=== PATIENT | male | born 1960 | race Caucasian/White ===

== ENCOUNTER 2018-08-19 07:22 | Inpatient (IN) ==
--- NOTE | 2018-07-21 13:08 | Anesthesiology Consultation ---
Date of Service July 21, 2018 Assessment & Plan (1) Encounter for pre-operative examination: PCP CLEARANCE (MARIO) 07/30 = "the patient is medically stable for the planned procedure. Lab and EKG were reviewed." Chart Review Chart Review: Acceptable Risk for Surgery and Patient seen in Pre Admission Testing Teaching & Discussion Instructed NPO after midnight before surgery, except medications with 15 cc of water. Medication instructions provided according to the PAT guidelines. History Surgery Operation Date: 08/19/18 09:45 Proposed Procedures p Left Total Shoulder Arthroplasty - Ravi Martinez MD Height/Weight Height: 6 ft Weight: 105.1 kg Allergies Allergy/AdvReac Type Severity Reaction Status Date / Time iodine Allergy Unknown WELTS Verified 07/16/18 15:57 meloxicam Allergy Unknown WAS TOLD Verified 07/16/18 16:25 NOT TO TAKE Medications Home Medications Medication Instructions Recorded Confirmed Last Taken Allergy Shots 1 UD 07/16/18 07/16/18 acetaminophen [Tylenol Extra 1,000 mg PO UD PRN 07/16/18 07/16/18 Unknown Strength] adalimumab [Humira] 40 mg SUBCUT 07/16/18 07/12/18 ascorbic acid (vitamin C) [Vitamin 240 mg PO QAM 07/16/18 07/16/18 Unknown C] atorvastatin 10 mg PO HS 07/16/18 07/16/18 07/15/18 cholecalciferol (vitamin D3) 6,000 unit PO QAM 07/16/18 07/16/18 Unknown [Vitamin D3] cyanocobalamin (vitamin B-12) 1,000 mcg PO QAM 07/16/18 07/16/18 Unknown [Vitamin B-12] diltiazem HCl 240 mg PO HS 07/16/18 07/16/18 07/15/18 fenofibrate 134 mg PO HS 07/16/18 07/16/18 07/15/18 gabapentin 900 mg PO TID 07/16/18 07/16/18 07/16/18 garlic 2 mg PO DAILY 07/16/18 07/16/18 Unknown [id number] 1 tab PO DAILY 07/16/18 07/16/18 Unknown [Multivitamin 50 Plus] omeprazole 40 mg PO QAM 07/16/18 07/16/18 07/16/18 sertraline 100 mg PO HS 07/16/18 07/16/18 07/15/18 Past Medical History Medical History Acid reflux Ankylosing spondylitis High blood pressure High cholesterol History of kidney stones X1 Hypoglycemia Pt reports he has sudden drops in blood glucose. Reports that with prior surgeries he has been okay with being NPO for 8 hours. Osteoarthritis Seasonal allergies Exercise / Class Metabolic Activity II 4-5 Yardwork/Stairs/Walk up hill (Denies CP or SOB with stairs, does daily) Past Family History Family History Mother Family history of pancreatic cancer Other Family history of prostate cancer in father Past Surgical History Surgical History History of appendectomy History of arthroscopy of left shoulder History of colonoscopy History of hemorrhoidectomy Past Anesthesia History No Hx of Anesthesia Complications and No Family Hx of Anesthesia Complications History of PONV No Hx of PONV and No Hx of Motion Sickness Social History Smoking Status: Former smoker Do You Dip or Chew Tobacco: Yes (1 CAN EVERY 2 DAYS - ADVISED NPO) Smoking End Date: SMOKED OFF AND ON A YOUNG ADULT - NONE CURRENTLY Hx Alcohol Use: No Hx Substance Use: No substance use type: does not use Review of Systems Pt denies any recent chest pain, shortness of breath, palpitations, cough, fever or URI. +seasonal allergies/rhinitis Physical Exam Vital Signs BP: 137/88 (pt reports this is high for him and he is nervous) P: 74bpm SPO2: 98% RA T: 98.4 F R: 16 ENMT Mouth: + dentures (partial lower), + dental restorations (several caps) and + chipped teeth (upper L bicuspid); no loose teeth Thyromental Distance: > or= 3.5 Finger Breadths (4) Mallampati Class: I Neck normal visual inspection; neck extension not limited Respiratory normal respiratory effort Auscultation: lungs clear to auscultation bilaterally Cardiovascular Rate/Rhythm: regular rate and regular rhythm Heart Sounds: no murmur Vessels: no carotid bruit Testing Laboratory Results 07/21/18 13:42 07/21/18 13:42 07/21/18 07/21/18 07/21/18 13:42 13:42 13:42 PT 10.9 INR 1.1 APTT 25.9 Hemoglobin A1c 5.7 H Urine Color Urine Appearance Urine pH Ur Specific [place] Urine Protein Urine Glucose (UA) Urine Ketones Urine Nitrite Ur Leukocyte Esterase Blood Type B Positive Antibody Screen NEGATIVE 07/21/18 13:42 PT INR APTT Hemoglobin A1c Urine Color Dark Yellow Urine Appearance Clear Urine pH 5.0 Ur Specific [place] 1.030 Urine Protein Negative Urine Glucose (UA) Negative Urine Ketones Trace H Urine Nitrite Negative Ur Leukocyte Esterase Negative Blood Type Antibody Screen Electrocardiogram Date: 07/21/18 Findings: + NSR @ (64) Chest X-Ray Date: 07/21/18 Findings: + NAD
--- NOTE | 2018-07-21 13:16 | PAT Medication Instructions ---
Medication Instructions Date of Service July 21, 2018 Home Medications Allergy Shots 1 UD acetaminophen [Tylenol Extra Strength] 1,000 mg PO UD PRN adalimumab [Humira] 40 mg SUBCUT ascorbic acid (vitamin C) 240 mg PO QAM atorvastatin 10 mg PO HS cholecalciferol (vitamin D3) 6,000 unit PO QAM cyanocobalamin (vitamin B-12)1,000 mcg PO QAM diltiazem HCl 240 mg PO HS fenofibrate 134 mg PO HS gabapentin 900 mg PO TID garlic 2 mg PO DAILY [Multivitamin 50 Plus] 1 tab PO DAILY omeprazole 40 mg PO QAM sertraline 100 mg PO HS Continue as directed Allergy Shots 1 UD ASK your prescriber and surgeon adalimumab [Humira] 40 mg SUBCUT STOP taking 2 weeks before surgery garlic 2 mg PO DAILY STOP taking 24 hours before surgery fenofibrate 134 mg PO HS DO NOT take the morning of surgery ascorbic acid (vitamin C) 240 mg PO QAM cholecalciferol (vitamin D3) 6,000 unit PO QAM cyanocobalamin (vitamin B-12)1,000 mcg PO QAM [Multivitamin 50 Plus] 1 tab PO DAILY Take morning of surgery With a small sip of water, OTHERWISE NOTHING TO EAT OR DRINK AFTER MIDNIGHT: acetaminophen [Tylenol Extra Strength] 1,000 mg PO UD PRN (if needed, may be taken up to four hours before surgery) gabapentin 900 mg PO TID omeprazole 40 mg PO QAM Take evening before surgery acetaminophen [Tylenol Extra Strength] 1,000 mg PO UD PRN (if needed) atorvastatin 10 mg PO HS diltiazem HCl 240 mg PO HS gabapentin 900 mg PO TID sertraline 100 mg PO HS Other Notes If you have any questions please call us at [phone] or [phone] or [phone] or [phone]
--- NOTE | 2018-07-21 13:57 | XRay Report ---
XR chest Pre-admission PA/Lat CLINICAL HISTORY: pat COMPARISON STUDY: No previous studies for comparison. FINDINGS: The bones soft tissues and hemidiaphragms are normal. The cardiomediastinal silhouette is n ormal. The lungs are clear. The pulmonary vasculature is normal. IMPRESSION: Negative chest. The above report was generated using voice recognition software. It may contain grammatical, syntax or spelling errors. Electronically signed by: Mirza Green M.D. 07/21/2018 1:55 PM
[2018-07-21 14:29] LABS: Appearance Urine Clear (Clear); Bilirubin Urine Negative (Negative); Blood Urine Negative (Negative); Color Urine Dark Yellow; Glucose Urine UA Negative (Negative); Ketones Urine Trace (Negative); Leukocyte Esterase Urine Negative (Negative); Nitrite Urine Negative (Negative); Protein Urine Negative (Negative); Urobilinogen Urine Negative (Negative)
[2018-07-21 14:45] LABS: Albumin Level 4.1 gm/dl (3.4-5.0); BUN Creatinine Ratio 13.8 (10-20); Calcium 9.7 mg/dl (8.5-10.1); Creatinine Clr Calc Pharmacy 86.7 ml/min; Est GFR (African American) 80.3; Est GFR (Non-African American) 69.3; Potassium 3.8 mmol/L (3.5-5.1)
[2018-07-21 14:46] LABS: INR 1.1 (0.9-1.1); Partial Thromboplastin Time 25.9 Seconds (21.0-31.0); Prothrombin Time 10.9 Seconds (9.0-12.0)
[2018-07-21 14:56] LABS: Estimated Average Glucose 117 mg/dl; Hemoglobin A1C 5.7 % (4.5-5.6)
[2018-07-21 15:20] LABS: Basophils # (auto) 0.01 K/uL (0-0.2); Basophils % (auto) 0.1 %; Eosinophils # (auto) 0.08 K/uL (0-0.5); Eosinophils % (auto) 1.1 %; Hematocrit (blood only) 45.4 % (42-52); Hemoglobin 15.9 g/dL (14.0-18.0); Immature Granulocytes # (auto) 0.03 K/uL (0.00-0.02); Immature Granulocytes % (auto) 0.4 %; Lymphocytes % (auto) 29.1 %; Mean Corpuscular Volume 94.4 fL (80-100); Mean Platelet Volume 10.5 fL (7.4-10.4); Monocytes # (auto) 0.79 K/uL (0.11-0.59); Monocytes % (auto) 10.4 %; Neutrophils # (auto) 4.46 K/uL (1.4-6.5); Neutrophils % (auto) 58.9 %; Platelet Count 217 K/uL (130-400); RDW Coefficient of Variation 13.3 % (11.5-14.5); RDW Standard Deviation 45.9 fL (36.4-46.3); Red Blood Count 4.81 M/uL (4.7-6.1); White Blood Count 7.57 K/uL (4.8-10.8)
--- NOTE | 2018-08-18 13:38 | History and Physical Report ---
DATE OF ADMISSION: 08/19/2018 CHIEF COMPLAINT: Chronic left shoulder pain. HISTORY OF PRESENT ILLNESS: This is a 58-year-old male patient of Dr. Martinez'stanton complaining of chronic left shoulder pain, longstanding, now progressively getting worse. The patient has been diagnosed with end-stage osteoarthritis per clinical and radiographic exams. The patient has failed conservative treatment and has elected to proceed with a left total shoulder arthroplasty. PAST MEDICAL HISTORY: Hypertension, hypercholesterolemia, sleep apnea, anxiety, osteoarthritis, TMJ, spine problems, neck problems, upper back problems, lower back problems, acid reflux, dental issues, kidney stones, BPH. SOCIAL HISTORY: Nonsmoker, nondrinker. PAST SURGICAL HISTORY: Exploratory laparoscopy, hemorrhoid and left shoulder scope. FAMILY HISTORY: Noncontributory. REVIEW OF SYSTEMS: Chronic left shoulder pain. Otherwise, denies any shortness of breath, chest pain, nausea, vomiting or any other joint complaints. MEDICATIONS: Fenofibrate 1 capsule daily, atorvastatin 10 mg daily, gabapentin 300 mg 3 times daily, diltiazem 240 mg daily, omeprazole 40 mg daily, sertraline 100 mg daily, Humira 10 mg/0.2 mL subQ. ALLERGIES: LODINE. PHYSICAL EXAMINATION: GENERAL: Well-developed, well-nourished 58-year-old male in no acute distress. He is alert and oriented x3 and pleasant. HEENT: Normocephalic, atraumatic. Extraocular motions are intact. Pupils are equal and reactive to light. HEART: Regular rate and rhythm, no murmurs. LUNGS: Clear. ABDOMEN: Soft, nontender, bowel sounds present. EXTREMITIES: Left shoulder has 4+/5 strength with pain and crepitation. He has limited range of motion to about 100 degrees with crepitation. NEUROLOGIC: Neurovascularly, he is intact in his left upper extremity. DIAGNOSES: Left shoulder end-stage osteoarthritis, hypertension, hypercholesterolemia, sleep apnea, anxiety, osteoarthritis, TMJ, spine problems, neck problems, upper back problems, sciatica, acid reflux, kidney stones, benign prostatic hypertrophy and dental issues. PLAN: The patient was advised of his diagnosis. Indications, risks, benefits, postop course have all been reviewed. The patient wished to proceed with a left total shoulder arthroplasty. Necessary consent forms, preoperative testing and clearances will be obtained.
[~2018-08-19 07:22] MED LIST: ACETAMINOPHEN 500 MG TAB PO SCH; CEFAZOLIN 2000MG 2,000 MG/15 ML SYR IV SCH; CeleBREX 200 MG CAP PO SCH; FAMOTIDINE 20 MG TAB PO SCH; GABAPENTIN 300 MG x 2 PO SCH; LR 15ML/HR IV SCH; METOCLOPRAMIDE HCL 10 MG TABLET PO SCH; ROPIVACAINE 0.5% 5 MG/ML 30 ML VIAL ONE; VANCOMYCIN HCL 1,500 MG in SODIUM CHLORIDE 0.9% 500 ML IV SCH; dexAMETHasone 4 MG TAB PO SCH
[2018-08-19] MEDS ORDERED: PROPOFOL IV EMULSION 10 MG/ML 20 ML VIAL IV ONE (08:04)
[2018-08-19] MEDS ORDERED: LIDOCAINE HCL 2% 2 ML VIAL/AMP(20MG/ML) INFIL ONE (08:04)
[2018-08-19] MEDS ORDERED: DEXAMETHASONE SOD INJ 4 MG/ML VIAL ONE (08:04)
[2018-08-19] MEDS ORDERED: ONDANSETRON INJ 2 MG/ML 2 ML VIAL ONE (08:04)
[2018-08-19] MEDS ORDERED: fentaNYL citrate 100 MCG/2 ML VIAL ONE (08:05)
[2018-08-19] MEDS ORDERED: MIDAZOLAM HCL 1 MG/ML 2ML VIAL ONE ×2 (08:05→08:34)
[2018-08-19] MEDS ORDERED: ATROPINE SULFATE 0.1 MG/ML 10ML SYR IV PRN (09:40)
[2018-08-19] MEDS ORDERED: ePHEDrine sulfate 50 MG/ML AMP IV PRN (09:40)
[2018-08-19] MEDS ORDERED: HYDROmorphone INJ 1 MG/ML SYRINGE IV PRN (09:40)
--- NOTE | 2018-08-19 09:45 | History & Physical Bridge Note ---
Date of Service August 19, 2018 History & Physical Bridge Note I have examined the patient, reviewed the History & Physical and in the interval since the performance of the History & Physical I have noted the following changes of clinical significance: no changes noted
[2018-08-19] MEDS ORDERED: BACITRACIN INJ 50,000 UNIT VIAL ONE (09:47)
[2018-08-19] MEDS ORDERED: EPINEPHrine INJ 1 MG/ML AMP ONE (09:47)
[2018-08-19] MEDS ORDERED: ROCURONIUM BROMIDE 10 MG/ML 5 ML VIAL ONE ×2 (11:38→11:55)
[2018-08-19] MEDS ORDERED: ePHEDrine sulfate 50 MG/ML SYR ONE (12:10)
[2018-08-19] MEDS ORDERED: ePHEDrine sulfate 50 MG/ML AMP ONE (12:10)
[2018-08-19] MEDS ORDERED: PHENYLEPHRINE 100MCG/ML 5ML SYR ONE (12:10)
[2018-08-19] MEDS ORDERED: THROMBIN FOR SOLN 20000 UNIT KIT ONE (12:33)
[2018-08-19] MEDS ORDERED: GLYCOPYRROLATE 0.2 MG/ML VIAL ONE (12:53)
[2018-08-19] MEDS ORDERED: NEOSTIGMINE METHYLSULFATE 5 MG/5 ML SYR ONE (12:53)
--- NOTE | 2018-08-19 13:20 | Post Operative Brief Note ---
Immediate Post Op Note v1 Date of Surgery August 19, 2018 Pre & Post Diagnosis Operation Date: 08/19/18 09:45 Pre-Op Diagnosis: LEFT SHOULDER OSTEOARTHRITIS biceps tenosynovitis Post-Op Diagnosis: LEFT SHOULDER OSTEOARTHRITIS biceps tenosynovitis biceps tendinopathy large degenerative cysts posterior glenoid with erosion Procedure Operation Date: 08/19/18 09:45 Actual Procedures p Left Total Shoulder Arthroplasty, Biceps Tenodesis(Left) - Ravi Martinez MD Surgeon Ravi Martinez MD Machine Heddle Cleaner Mirza LECHUGA Estimated Blood Loss 200 Findings Consistent with Post-Op Diagnosis Specimens Humeral head Drains Hemovac Drain Anesthesia Type General Regional Complications none Disposition Accompanied Patient To Recovery: No Disposition: Recovery Room Overlapping Procedure I was present for: the critical portions of procedure.
--- NOTE | 2018-08-19 14:11 | Anesthesiology Progress Note ---
Date of Service August 19, 2018 Anesthesia Post Procedure Vital Signs Vital Signs: Temp Pulse Pulse Resp BP Pulse Ox 08/19/18 14:05 92 H 21 121/64 91 08/19/18 13:55 87 18 101/64 95 08/19/18 13:45 85 15 105/67 95 08/19/18 13:35 36.2 C L 88 16 104/67 93 08/19/18 09:55 36.6 C 62 20 125/87 95 Pain Intensity Left Shoulder: Pain Intensity: 0 Transfer of Care Handoff Completed per policy Notes Mental Status: alert / awake / arousable Patient Amnestic to Procedure: Yes Nausea / Vomiting: adequately controlled Pain: adequately controlled Airway Patency, RR, SpO2: stable & adequate BP & HR: stable & adequate Hydration State: stable & adequate Anesthetic Complications: no major complications apparent and Pt Satisfied with anesthetic care
--- NOTE | 2018-08-19 14:11 | XRay Report ---
XR shoulder LT min 2V routine CLINICAL HISTORY: Post shoulder surgery COMPARISON: None. DISCUSSION: There are postsurgical changes of a total left shoulder arthroplasty. There is no disloca tion. There are overlying skin smita and surgical drains. There is aortic the soft tissues consiste nt with recent surgery. Left lower lung zone opacities while nonspecific are likely atelectatic. IMPRESSION: Postsurgical changes of a total left shoulder arthroplasty. No dislocation identified. Electronically signed by: Munir Tay M.D. 08/19/2018 2:09 PM
[2018-08-19] MEDS ORDERED: BISACODYL 10 MG SUPP PR PRN (15:16)
[2018-08-19] MEDS ORDERED: HYDROmorphone INJ 0.5 MG/0.5 ML SYR IV PRN (15:16)
[2018-08-19] MEDS ORDERED: NALOXONE HCL 0.4 MG/1 ML VIAL/CARP IV PRN (15:16)
[2018-08-19] MEDS ORDERED: SODIUM CHLORIDE 0.9% 1000ML 1,000 ML IV SCH (15:16)
[2018-08-19] MEDS ORDERED: MAGNESIUM HYDROXIDE SUSP 30 ML UDC PO PRN (15:16)
[2018-08-19] MEDS ORDERED: ONDANSETRON INJ 2 MG/ML 2 ML VIAL IV PRN (15:16)
--- NOTE | 2018-08-19 16:10 | Hospitalist Consultation ---
Date of Consultation August 19, 2018 Assessment & Plan (1) Osteoarthritis, shoulder: - S/p left total shoulder arthroplasty today. - Pain control per primary team. - DVT ppx: Aspirin 81 mg BID. - PT/OT evaluation. - Monitor CBC qAM to evaluate for acute blood loss anemia. (2) Ankylosing spondylitis: - Receives Humira injection [id number] along with Gabapentin 900 mg TID. (3) HTN (hypertension): - Continue Diltiazem as prescribed. (4) HLD (hyperlipidemia): - Continue statin as prescribed. (5) Vitamin D deficiency: - Continue Vit D replacement. (6) GERD (gastroesophageal reflux disease): - PPI qAM. (7) Depression: - Continue Sertraline as prescribed. (8) DVT prophylaxis: - SCDs; ASA 81 mg BID. Dispo: Will continue to follow, please call with questions. Supervising Physician Co-Signing Physician Notes Attending Attestation & Consult Note: Pt seen/examined, chart reviewed, care plan d/w ALEXANDREA August. I agree w/ the francis components of her documentation. 58yo male who underwent left total shoulder replacement today. During my visit he was tremulous/shaky. BSG was checked and was >150. He denied feeling nervous, denied h/o etoh misuse, denied pain. He was also tachycardic - EKG obtained - my reading sinus tach, no ST changes. Denied cp, dyspnea, abd pain. PMH, PSH, allergies, meds, sochx, famhx, ros - reviewed gen - shaky, tremors noted but a/o x 3 heart - tachy, s1 s2 lungs - CTA b/l abd - soft NT ND BS+ ext - left shoulder in large, bulky dressing neuro - mild tremors If tachycardia persists this will need additional work-up. Ordered nicoderm - consumes fair amount of chewing tobacco daily. Tremors - cause? Follow for now. Catrachito Garcia MD History of Present Illness Reason for Consultation: Medical Management Attending Physician: Ravi Martinez MD History of Present Illness Mr. Abel is a 58 year old male with past medical history of GERD, Ankylosing spondylitis, HTN, HLD, Osteoarthritis, Depression who presented for a planned total left shoulder arthroplasty. He is doing well post op. Complains of a sore throat 2/2 intubation. Denies chest pain, SOB, N/V. Allergies Allergy/AdvReac Type Severity Reaction Status Date / Time iodine Allergy Unknown WELTS Verified 08/19/18 07:58 meloxicam Allergy Unknown WAS TOLD Verified 08/19/18 07:58 NOT TO TAKE Home Medications Home Medications Medication Instructions Recorded Confirmed Type Allergy Shots 1 UD 07/16/18 History Humira 40 mg SUBCUT 07/16/18 History Multivitamin 50 Plus 1 tab PO DAILY 07/16/18 08/19/18 History ascorbic acid (vitamin C) [Vitamin 240 mg PO QAM 07/16/18 08/19/18 History C] atorvastatin 10 mg PO HS 07/16/18 07/16/18 History cholecalciferol (vitamin D3) 6,000 unit PO QAM 07/16/18 08/19/18 History [Vitamin D3] cyanocobalamin (vitamin B-12) 1,000 mcg PO QAM 07/16/18 08/19/18 History [Vitamin B-12] diltiazem HCl 240 mg PO HS 07/16/18 07/16/18 History fenofibrate 134 mg PO HS 07/16/18 07/16/18 History gabapentin 900 mg PO TID 07/16/18 07/16/18 History garlic 2 mg PO DAILY 07/16/18 08/19/18 History omeprazole 40 mg PO QAM 07/16/18 07/16/18 History sertraline 100 mg PO HS 07/16/18 07/16/18 History acetaminophen [Tylenol Extra 1,000 mg PO Q8 30 Days #180 tab 08/20/18 Rx Strength] oxycodone 5 mg PO Q4H PRN #30 tab 08/20/18 Rx Patient History Medical History Acid reflux Ankylosing spondylitis High blood pressure High cholesterol History of kidney stones X1 Hypoglycemia Pt reports he has sudden drops in blood glucose. Reports that with prior surgeries he has been okay with being NPO for 8 hours. 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 Beliefs That Will Affect Care: None marital status: Current Living Situation: Spouse Other Information That Helps Us Care for You: No Feels Safe at Home: Yes Smoking Status: Former smoker Do You Dip or Chew Tobacco: Yes (1 CAN EVERY 2 DAYS - ADVISED NPO) Smoking End Date: SMOKED OFF AND ON A YOUNG ADULT - NONE CURRENTLY Hx Alcohol Use: No Hx Substance Use: No Review of Systems Review of Systems: All systems reviewed & are unremarkable except as noted in HPI & below Physical Exam Physical Exam: General: Resting comfortably in no apparent distress HEENT: NC/AT; PERRLA with EOMI; [place] conjunctiva, MMM. No erythema of posterior pharynx Neck: Supple and nontender Cardiac: RRR w/o murmurs, gallops or rubs Lungs: CTA bilaterally; No rhonchi, wheezing, or rales Abdomen: Bowel normoactive X 4; Nontender to palpation Extremities: Warm. No edema present. Dressing in place over left shoulder. Neuro: No focal weakness Skin: No rash Results & Data Vital Signs (Past 12 Hours) Vital Signs Temp Pulse Pulse Resp BP Pulse Ox 08/19/18 16:00 36.9 C 93 H 16 111/74 94 08/19/18 15:38 36.9 C 87 16 102/70 93 08/19/18 14:45 86 14 119/76 94 08/19/18 14:30 84 16 111/71 91 08/19/18 14:15 36.4 C L 86 14 112/75 93 08/19/18 14:05 92 H 21 121/64 91 08/19/18 13:55 87 18 101/64 95 08/19/18 13:45 85 15 105/67 95 08/19/18 13:35 36.2 C L 88 16 104/67 93 08/19/18 09:55 36.6 C 62 20 125/87 95 Laboratory Results 08/19/18 08/19/18 Range/Units 13:40 12:47 POC Glucose 134 H 129 H (70-99) PG Care Time/CCT Total # of Minutes Spent Total Time Spent with Patient: Total time spent is greater than 50% in coordination of care (as documented) at patient's floor/unit and/or counseling patient:
[2018-08-19] MEDS: CEFAZOLIN 2000MG 2,000 MG/15 ML SYR IV SCH (18:24)
--- NOTE | 2018-08-19 18:57 | Operative Report ---
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 Patient has x-rays and MRI demonstrate he is [id number] in the joint. He has an intact rotator cuff and has had previous arthroscopic subacromial decompression distal clavicle excision surgery. Description of Procedure The patient was taken to the operating room and anesthetized under a general and regional block anesthesia. A towel roll was placed under the medial border of the scapula of the left shoulder. The patient's head was placed on a foam headrest and protective eyewear was placed and the extremities were well padded. The arm was draped free in order to manipulate the shoulder as necessary. The shoulder exam demonstrated [id number] crepitation forward elevation 140 abduction 80 external rotation 50. The shoulder was sterilely prepped and draped in the usual sterile fashion. An anterior deltopectoral approach was performed. A longitudinal incision was made in the interval. The skin was incised sharply and subcutaneous tissues dissected down to the fascia. The cephalic vein was identified and retracted laterally with the deltoid. Any crossing veins were tied off with silk ties and divided. The clavipectoral fascia was divided at the lateral margin of the conjoined tendon and divided up to the level of the coracoacromial ligament which was preserved. The upper 1 cm of the pectoralis was released for inferior exposure. The biceps tendon findings demonstrated marked tenosynovitis with large fluid collections and inflamed tenosynovium. The thickened tenosynovium was resected up into the bicipital groove and the biceps tendon was tenodesed to the pectoralis tendon with [id number] #2 FiberWire sutures in the proximal biceps resected. The rotator cuff tendon findings demonstrated complete intact rotator cuff. The circumflex vessels were identified and tied off with silk ties and divided laterally. The fibers and subscapularis were split longitudinally at the level of the circumflex vessels down to the capsule and then reflected off the inferior capsule using a Kitner elevator. The axillary nerve was identified with a tug test and protected with a blunt Alie retractor. The rotator interval was opened up and extended down to the glenoid.The subscapularis tendon was taken down with a trans-tendinous incision leaving a cuff of tissue for repair on the lesser tuberosity. The incision was carried down to the tendon and the capsule and a #1 Vicryl suture was placed into the free end of the subscapularis tendon. The capsule was subperiosteally dissected off the inferior neck of the humerus exposing the humeral osteophytes which demonstrated large osteophytes laterally inferiorly and posteriorly. The osteophytes were excised with an artist chisel and a rongeur. The capsular release along the inferior neck of the humerus was completed. The humerus was then retracted posterior to the glenoid with a Fukuda retractor. The remainder of the biceps tendon and labrum was resected. The glenoid findings demonstrated there was marked erosion of the posterior third of the glenoid. There were large subchondral cysts of that the actual bone at the surface of the posterior glenoid was free-floating and after removal of this there were deep cysts below this area. Multiple fragments were removed and the remainder of the articular surface cartilage anteriorly was curetted down so we could see the true level of the glenoid. I did an anterior inferior and posterior inferior release with electrocautery on bone and a Ott elevator with the axillary nerve continuing to be protected with the blunt Hohmann retractor inferiorly. When the releases were completed and the humeral head was exposed with some extension and external rotation and in anatomic head cut was made using the oscillating saw. The humeral head findings demonstrated eburnated bone no major bone loss. The humeral head was then retracted posterior to the glenoid with Hohmann retractors and Bankart retractor placed anteriorly. A central drill hole was made into the glenoid. The glenoid was sized for a size 48 component. I chose she is a 48 component because the 52 which was a better fit for the humeral component would have had too much overhang on the deficient posterior glenoid so we had to downsize the glenoid to get better backside coverage due to the bone loss. The Tornier total shoulder arthroplasty system was used and the Affinity Cortiloc glenoid component was chosen. The glenoid was reamed and the central drill widened and the guide for the peg holes was placed in the peg holes were drille d. A good bit of attention was then taken to repairing the multiple cysts which had to be excised with a curette and rongeur removing all the loose fragments of the posterior glenoid so we had a good base for cementing the component. A trial component was placed with a tight fit. I tested the trial component there was no rocking. The trial was removed and the glenoid was irrigated with pulsatile lavage antibiotic solution and the drill holes were dried and packed with epinephrine-soaked tampons for hemostasis. The [place] G cement was vacuum mixed. The final component was cemented into position and held in position with pressure until the cement cured. Attention was taken to the humeral preparation. A centralizing awl was used in the canal followed by broaches up to a size 6B. This had the appropriate fit and fill. A size 52 x 23 millimeter trial aequalis humeral head was then used. It was rotated into appropriate position. A trial reduction was performed and the shoulder was stable. The trial was removed and the humerus and canal were irrigated with antibiotic solution with bacitracin. 3 drill holes were made into the hard bone in the bicipital groove lateral to the lesser tuberosity and 3 #5 FiberWire transosseous sutures were placed for repair of the subscapularis. After further irrigation of the canal and the final components were assembled. The final comp onents were the 6B standard ascend flex stem assembled to the 52 x 23 high offset aequalis humeral head. The implant was then impacted into the humerus with a tight press-fit. The humerus was reduced to the glenoid and stability verified. The subscapularis was repaired with the #5 FiberWire sutures in a Chau-Ryan suture technique and lateral row fixation with [id number] #2 FiberWire in the soft tissue. The rotator interval was closed and maximal external rotation. The pectoralis was then closed with [id number]-[id number] #2 FiberWire suture. Sutures were also passed through the biceps tendon reinforcing the biceps tenodesis. 2 Hemovac drains were placed. The deltopectoral interval was closed with [id number]-[id number] #1 Vicryl sutures. The subcutaneous tissues were closed with interrupted 2-0 Vicryl and the skin was closed with smita and a sterile dressing was applied. The patient tolerated the procedure well. Mirza LECHUGA my physician stylist assistant, assisted in soft tissue retraction instrument management suture management and assisted in the subcutaneous and skin closure and will participate in the postoperative care the patient. I attest to the content of the Intraoperative Record and any orders documented therein. Any exceptions are noted below.
[2018-08-19] MEDS ORDERED: NICOTINE 7 MG/24 HR TDSY TD SCH (20:00)
[2018-08-19] MEDS: ASPIRIN 81 MG ECTAB PO SCH (20:01)
[2018-08-19] MEDS: GABAPENTIN 300 MG CAP PO SCH (20:02)
[2018-08-19] MEDS: DOCUSATE SODIUM 100 MG CAP PO SCH (20:02)
[2018-08-19] MEDS: ACETAMINOPHEN 500 MG TAB PO SCH (20:56)
[2018-08-19] MEDS ORDERED: SENNA 8.6 MG TAB PO SCH (21:00)
[2018-08-19] MEDS ORDERED: dilTIAZem HCL 240 MG CAPCR PO SCH (21:00)
[2018-08-19] MEDS ORDERED: SERTRALINE HCL 100 MG TABLET PO SCH (21:00)
[2018-08-19] MEDS ORDERED: ATORVASTATIN 10 MG TAB PO SCH (21:00)
[2018-08-20] MEDS ORDERED: SODIUM CHLORIDE 0.65% NA SOLN 45 ML (OCEAN) ONE (00:45)
[2018-08-20] MEDS: CEFAZOLIN 2000MG 2,000 MG/15 ML SYR IV SCH (02:58)
[2018-08-20] MEDS: OXYCODONE HCL IR 5 MG TAB (IMMEDIATE RELEASE) PO PRN ×2 (05:07→14:09)
[2018-08-20 05:50] LABS: Hematocrit (blood only) 39.7 % (42-52); Hemoglobin 13.6 g/dL (14.0-18.0); Immature Granulocytes # (auto) 0.02 K/uL (0.00-0.02); Immature Granulocytes % (auto) 0.2 %; Lymphocytes # (auto) 0.69 K/uL (1.2-3.4); Lymphocytes % (auto) 5.5 %; Mean Corpuscular Hgb Conc 34.3 g/dL (32-36); Mean Corpuscular Volume 95.4 fL (80-100); Mean Platelet Volume 10.2 fL (7.4-10.4); Monocytes # (auto) 0.97 K/uL (0.11-0.59); Monocytes % (auto) 7.7 %; Neutrophils # (auto) 10.93 K/uL (1.4-6.5); Neutrophils % (auto) 86.6 %; Platelet Count 220 K/uL (130-400); RDW Coefficient of Variation 13.3 % (11.5-14.5); RDW Standard Deviation 46.5 fL (36.4-46.3); Red Blood Count 4.16 M/uL (4.7-6.1); White Blood Count 12.61 K/uL (4.8-10.8)
[2018-08-20 06:18] LABS: BUN Creatinine Ratio 14.9 (10-20); Calcium 9.1 mg/dl (8.5-10.1); Creatinine Clr Calc Pharmacy 70.5 ml/min; Est GFR (African American) 62.2; Est GFR (Non-African American) 53.7; Magnesium 2.1 mg/dl (1.8-2.4); Potassium 4.2 mmol/L (3.5-5.1)
[2018-08-20] MEDS: ACETAMINOPHEN 500 MG TAB PO SCH ×2 (06:28→13:14)
--- NOTE | 2018-08-20 07:21 | Orthopedic Progress Note ---
Date of Service August 20, 2018 Assessment & Plan (1) Osteoarthritis, shoulder: POD #1 Left TSA, Biceps Tenodesis PT/ OT DVT proph- ASA D/C planning- Home This afternoon if stable. Subjective POD#1, doing well, denies SOB, CP, N/V. Pain controlled well. Would like to go home today. Drain output 160 last shift. Physical Exam Physical Exam: Left shoulder dressings c/d/i, no drainage. Fingers mobile. Sling and drain in tact. N/V + A&Ox3. Results & Data Vital Signs (Past 12 Hours) Vital Signs Temp Pulse Resp BP Pulse Ox 08/20/18 06:53 36.4 C L 88 18 121/71 90 08/20/18 03:05 36.7 C 96 H 20 119/76 93 08/20/18 00:14 36.6 C 102 H 16 142/82 H 91 08/19/18 21:00 105 H 08/19/18 19:49 36.8 C 116 H 16 124/83 93
[2018-08-20] MEDS ORDERED: SODIUM CHLORIDE 0.9% 1000ML 1,000 ML IV SCH (08:15)
[2018-08-20] MEDS ORDERED: PANTOprazole 40 MG TAB PO SCH (09:00)
[2018-08-20] MEDS ORDERED: MULTIVITAMIN TAB PO SCH (09:00)
[2018-08-20] MEDS ORDERED: ASCORBIC ACID 500 MG TAB PO SCH (09:00)
[2018-08-20] MEDS ORDERED: CYANOCOBALAMIN 500 MCG TABLET (VITAMIN B-12) PO SCH (09:00)
[2018-08-20] MEDS ORDERED: CEROVITE ADV FORMULA TAB PO SCH (09:00)
[2018-08-20] MEDS ORDERED: CHOLECALCIFEROL 1,000 UNITS TAB PO SCH (09:00)
[2018-08-20] MEDS: ASPIRIN 81 MG ECTAB PO SCH (09:18)
[2018-08-20] MEDS: GABAPENTIN 300 MG CAP PO SCH ×2 (09:22→13:14)
[2018-08-20] MEDS: DOCUSATE SODIUM 100 MG CAP PO SCH (09:23)
--- NOTE | 2018-08-20 10:32 | Hospitalist Progress Note ---
Date of Service August 20, 2018 Assessment & Plan (1) Osteoarthritis, shoulder: - S/p left total shoulder arthroplasty on 08/19, POD#1. - Pain control per primary team. - DVT ppx: Aspirin 81 mg BID. - PT/OT - discharge to home this afternoon. - Monitor CBC qAM - trending down as expected. (2) Acute kidney injury: - Creatinine increased to 1.42, baseline ~1.1. - May be pre-renal related to dehydration. - Started NS at 100 cc/hr. - Will repeat BMP this evening if pt. is not discharged to home yet. - Does have h/o renal failure related to NSAID use, instructed to avoid use of Aspirin/NSAIDs at home; discussed with orthopedics, pt. will not be discharged home with ASA DVT ppx. (3) Ankylosing spondylitis: - Receives Humira injection [id number] along with Gabapentin 900 mg TID. (4) HTN (hypertension): - Continue Diltiazem as prescribed. (5) HLD (hyperlipidemia): - Continue statin as prescribed. (6) Vitamin D deficiency: - Continue Vit D replacement. (7) GERD (gastroesophageal reflux disease): - PPI qAM. (8) Depression: - Continue Sertraline as prescribed. (9) Tobacco abuse: - Smokeless tobacco -- 1-2 cans per day. - Nicotine patch ordered -- withdrawal may have been contributing to tachycardia over last 24 hours. (10) DVT prophylaxis: - SCDs; ASA 81 mg BID. Dispo: Pt. is medically stable, please call with questions. Supervising Physician Co-Signing Physician Notes Attending Attestation: Chart reviewed, care plan d/w ALEXANDREA August. I agree w/ the francis components of her documentation. POD #1 s/p left total shoulder replacement. Tachycardia resolved - suspect due to pain and/or withdrawal from nicotine vs other. Ms August reports tremors/shakiness have resolved. Other vitals/labs acceptable except for mild acute kidney injury - BMP ordered for tomorrow AM. Catrachito Garcia MD Subjective Pt. is doing well overall. Pain in shoulder is stable. Is passing gas, no BM yet. Denies urinary retention. Will be discharged to home this afternoon. Review of Systems Review of Systems: All systems reviewed & are unremarkable except as noted in HPI & below Constitutional: no fever, no chills, no fatigue and no weakness Respiratory: no cough, no dyspnea and no dyspnea on exertion Cardiovascular: no chest pain, no palpitations and no edema Gastrointestinal: + constipation; no abdominal pain, no nausea and no vomiting Genitourinary: no difficulty urinating Musculoskeletal: no back pain and no joint pain Integumentary: no non-healing lesions Allergy / Immunological: no rash Physical Exam Physical Exam: General: Resting comfortably in no apparent distress HEENT: NC/AT; PERRLA with EOMI; [place] conjunctiva, MMM. No erythema of posterior pharynx Neck: Supple and nontender Cardiac: RRR Lungs: CTA bilaterally Abdomen: Bowel normoactive X 4; Nontender to palpation Extremities: Warm. No edema present. Dressing in place over left shoulder. Neuro: No focal weakness Skin: No rash Results & Data Vital Signs (Past 12 Hours) Vital Signs Temp Pulse Resp BP Pulse Ox 08/20/18 06:53 36.4 C L 88 18 121/71 90 08/20/18 03:05 36.7 C 96 H 20 119/76 93 08/20/18 00:14 36.6 C 102 H 16 142/82 H 91 Laboratory Results 08/20/18 08/20/18 08/20/18 Range/Units 05:30 05:30 05:30 WBC 12.61 H (4.8-10.8) K/uL RBC 4.16 L (4.7-6.1) M/uL Hgb 13.6 L (14.0-18.0) g/dL Hct 39.7 L (42-52) % MCV 95.4 (80-100) fL MCH 32.7 (25-34) pg MCHC 34.3 (32-36) g/dL RDW Std Deviation 46.5 H (36.4-46.3) fL RDW Coeff of Scott 13.3 (11.5-14.5) % Plt Count 220 (130-400) K/uL MPV 10.2 (7.4-10.4) fL Immature Gran % (Auto) 0.2 % Neut % (Auto) 86.6 % Lymph % (Auto) 5.5 % [place] % (Auto) 7.7 % Eos % (Auto) 0.0 % Baso % (Auto) 0.0 % Immature Gran # (Auto) 0.02 (0.00-0.02) K/uL Neut # (Auto) 10.93 H (1.4-6.5) K/uL Lymph # (Auto) 0.69 L (1.2-3.4) K/uL [place] # (Auto) 0.97 H (0.11-0.59) K/uL Eos # (Auto) 0.00 (0-0.5) K/uL Baso # (Auto) 0.00 (0-0.2) K/uL Sodium 139 (136-145) mmol/L Potassium 4.2 (3.5-5.1) mmol/L Chloride 105 (98-107) mmol/L Carbon Dioxide 28 (21-32) mmol/L Anion Gap 6.0 (3-11) BUN 21 H (7-18) mg/dl Creatinine 1.42 H (0.6-1.4) mg/dl Est Cr Clr Drug Dosing 70.5 ml/min Est GFR ( Amer) 62.2 Est GFR (Non-Af Amer) 53.7 BUN/Creatinine Ratio 14.9 (10-20) Glucose 187 H (70-99) mg/dl POC Glucose (70-99) Calcium 9.1 (8.5-10.1) mg/dl Magnesium 2.1 (1.8-2.4) mg/dl Hepatitis C Ab Screen Neg (Neg) 08/19/18 08/19/18 08/19/18 Range/Units 19:45 13:40 12:47 WBC (4.8-10.8) K/uL RBC (4.7-6.1) M/uL Hgb (14.0-18.0) g/dL Hct (42-52) % MCV (80-100) fL MCH (25-34) pg MCHC (32-36) g/dL RDW Std Deviation (36.4-46.3) fL RDW Coeff of Scott (11.5-14.5) % Plt Count (130-400) K/uL MPV (7.4-10.4) fL Immature Gran % (Auto) % Neut % (Auto) % Lymph % (Auto) % [place] % (Auto) % Eos % (Auto) % Baso % (Auto) % Immature Gran # (Auto) (0.00-0.02) K/uL Neut # (Auto) (1.4-6.5) K/uL Lymph # (Auto) (1.2-3.4) K/uL [place] # (Auto) (0.11-0.59) K/uL Eos # (Auto) (0-0.5) K/uL Baso # (Auto) (0-0.2) K/uL Sodium (136-145) mmol/L Potassium (3.5-5.1) mmol/L Chloride (98-107) mmol/L Carbon Dioxide (21-32) mmol/L Anion Gap (3-11) BUN (7-18) mg/dl Creatinine (0.6-1.4) mg/dl Est Cr Clr Drug Dosing ml/min Est GFR ( Amer) Est GFR (Non-Af Amer) BUN/Creatinine Ratio (10-20) Glucose (70-99) mg/dl POC Glucose 192 H 134 H 129 H (70-99) Calcium (8.5-10.1) mg/dl Magnesium (1.8-2.4) mg/dl Hepatitis C Ab Screen (Neg) PG Care Time/CCT Total # of Minutes Spent Total Time Spent with Patient: Total time spent is greater than 50% in coordination of care (as documented) at patient's floor/unit and/or counseling patient:
--- NOTE | 2018-09-02 02:32 | Discharge Summary ---
HISTORY OF PRESENT ILLNESS: This is a 58-year-old male patient of Dr. Martniez'stanton complaining of chronic left shoulder pain, longstanding, now progressively getting worse. The patient has been diagnosed with end-stage osteoarthritis per clinical and radiographic exams. The patient wished to proceed with a left total shoulder arthroplasty. PAST MEDICAL HISTORY: Hypertension, hypercholesterolemia, sleep apnea, anxiety, osteoarthritis, TMJ, spine problems, neck problems, upper back problems, lower back problems, acid reflux, dental issues, kidney stones and BPH. POSTOPERATIVE COURSE: The patient underwent a left total shoulder arthroplasty and biceps tenodesis on 08/19/2018. He was followed closely with medical consultation and DVT prophylaxis. He did very well postoperatively and was discharged home on postoperative day #1. PHYSICAL EXAMINATION ON DISCHARGE: Left shoulder incision was clean, dry and intact. Bert were intact. Skin edges were approximated well. There was no redness or drainage. He had good elbow motion. Fingers were mobile and sling was intact. Neurologically and neurovascularly he was intact in his left upper extremity. DIAGNOSES: Status post left total shoulder arthroplasty and biceps tenodesis, hypertension, hypercholesterolemia, sleep apnea, anxiety, osteoarthritis, TMJ, spine problems, neck problems, upper back problems, lower back problems, acid reflux, dental issues, kidney stones and benign prostatic hypertrophy. PLAN: The patient was discharged home with outpatient physical therapy. He will continue his preadmission medications with the addition of pain medications. He will follow up as scheduled as an outpatient.
== END 2018-08-20 15:21 | disposition home or self-care (01) | DRG 483 ==
LOC: ASU 07:22 → 3E 15:10